=== PATIENT | female | born 1945 | race Hispanic/Latino ===

== ENCOUNTER 2017-05-09 11:12 | Outpatient (CLI) | payer MEDICARE ==
--- NOTE | 2017-05-09 13:06 | XRay Report ---
Left hip: Pain. A superomedial joint space on the left may be slightly more narrowed than on the right however the acetabular and femoral articular surfaces appear smooth. There is a small lateral superior acetabular spur. The joint is well aligned and not otherwise remarkable. It is of note that there are degenerative changes involving L5-S1. Impression: Mild degenerative changes of the left hip.
== END 2017-05-09 11:13 | disposition home or self-care (01) ==
LOC: SPVIMAG 11:12
PROVIDERS: ATTEND Internal Medicine
DX: M16.12 Unilateral primary osteoarthritis, left hip (principal); M25.852 Other specified joint disorders, left hip; M47.897 Other spondylosis, lumbosacral region

== ENCOUNTER 2017-05-11 12:45 | Outpatient (CLI) | payer MEDICARE ==
--- NOTE | 2017-05-11 15:23 | Mammography Report ---
BILATERAL MAMMOGRAM: FINDINGS: The breasts are almost entirely fat (<25% glandular). No mass, distortion, suspicious calcification, or skin change is seen. No significant changes compared to prior exam in 2015. CAD was utilized. IMPRESSION: Negative mammogram. There is no mammographic evidence of malignancy. RECOMMENDATION: Follow-up per ACS guidelines. BI-RADS CATEGORY: 1 = Negative ACR BI-RADS MAMMOGRAPHIC CODES: 0 = Needs additional imaging evaluation; 1 = Negative; 2 = Benign; 3 = Probably benign; 4 = Suspicious; 5 = Malignant; 6 = Known biopsy-proven malignancy COMMENT: 1. Dense breast tissue, i.e., adenosis, fibrocystic changes, etc., may obscure an underlying neoplasm. 2. Approximately 10% of cancers are not detected with mammography. 3. A negative mammography report should not delay biopsy if a clinically suspicious mass is present. COMMENT: Patient follow-up letters are generated in [employer].
== END 2017-05-11 12:46 | disposition home or self-care (01) ==
LOC: SPVWC 12:45
PROVIDERS: ATTEND Internal Medicine
DX: Z12.31 Encounter for screening mammogram for malignant neoplasm of breast (principal)
CPT/HCPCS: 77067; G0202